=== PATIENT | female | born 2000 ===

== ENCOUNTER 2021-03-17 14:47 | Emergency (ER) | payer MEDICAID ==
[~2021-03-17] VITALS: Ht 157.5 cm; Wt 86.2 kg
[2021-03-17] MEDS ORDERED: MORPHINE SULFATE INJECTION 2 MG/ML SYRG IV ONE (16:30)
[2021-03-17] MEDS ORDERED: ONDANSETRON HCL 4 MG/2 ML VIAL IV ONE (16:30)
[2021-03-17 16:51] VITALS: BP 118/76
[2021-03-17] MEDS ORDERED: KETOROLAC TROMETH 60MG/2ML VIAL IM ONE (18:30)
== END 2021-03-17 18:58 | disposition home or self-care (01) ==
LOC: ER 14:47 → EDBD 14:47 → ER 18:58
DX: S39.012A Strain of muscle, fascia and tendon of lower back, initial encounter (principal); M51.26 Other intervertebral disc displacement, lumbar region; X58.XXXA Exposure to other specified factors, initial encounter; Y93.89 Activity, other specified; Y92.89 Other specified places as the place of occurrence of the external cause; Y99.8 Other external cause status
CPT/HCPCS: 72131; 96374; 96375; 99284; J1885; J2270; J2405